=== PATIENT | female | born 1980 | race Caucasian/White ===

== ENCOUNTER 2019-10-07 12:37 | Inpatient (IN) | payer OTHER ==
[~2019-10-07] VITALS: Ht 167.6 cm; Wt 95.5 kg
[2019-10-07 13:06] LABS: BASOPHILS % (AUTO) 1.2 % (0.0-2.0); EOSINOPHILS % (AUTO) 3.6 % (1.0-6.0); HEMATOCRIT 29.2 % (36-46); HEMOGLOBIN 9.1 g/dL (12.0-16.0); LYMPHOCYTES # (AUTO) 2.4 K/uL (1.0-4.8); LYMPHOCYTES % (AUTO) 32.9 % (22.0-44.0); MEAN CORPUSCULAR HEMOGLOBIN 21.1 pg (26.0-34.0); MEAN CORPUSCULAR HGB CONC 31.1 G/dL (31.0-37.0); MEAN CORPUSCULAR VOLUME 68 fL (80-100); MONOCYTES # (AUTO) 0.6 K/uL (0.1-1.0); MONOCYTES % (AUTO) 7.5 % (2.0-9.0); NEUTROPHILS % (AUTO) 54.8 % (40.0-70.0); PLATELET COUNT (AUTO) 375 K/uL (150-450); RED BLOOD CELL COUNT(AUTO) 4.29 MIL/uL (4.00-5.20)
[2019-10-07] MEDS ORDERED: ACETAMINOPHEN 325 MG TABLET PO PRN (13:15)
[2019-10-07] MEDS ORDERED: ONDANSETRON HCL 4 MG/2 ML VIAL IVP PRN ×2 (13:15→16:30)
[2019-10-07] MEDS ORDERED: 0.9% SODIUM CHLORIDE 10 ML SYRINGE IVP PRN (13:15)
[2019-10-07 13:30] LABS: ANION GAP 7 mmol/L (8-16); CALCIUM, TOTAL 8.3 mg/dL (8.8-10.5); CARBON DIOXIDE 25 mmol/L (22-29); CHLORIDE 104 mmol/L (98-107); CREATININE 0.69 mg/dL (0.60-1.30); GLOMERULAR FILTR. RATE CALC > 60 mL/min (>60); GLUCOSE,RANDOM 102 mg/dL (70-110); POTASSIUM 4.1 mmol/L (3.5-5.1); SODIUM SERUM 136 mmol/L (136-145); UREA NITROGEN, BLOOD 13 mg/dL (7-18)
[2019-10-07 13:34] LABS: ALANINE AMINOTRANSFERASE 20 U/L (12-78); ALBUMIN 3.1 g/dL (3.4-5.0); ALKALINE PHOSPHATASE 70 U/L (46-116); ASPARTATE AMINOTRANSFERASE 13 U/L (15-37); BILIRUBIN,TOTAL 0.2 mg/dL (0.1-1.0); HCG,QUANTITATIVE < 1 mIU/mL (0-6); TOTAL PROTEIN, SERUM 7.5 g/dL (6.4-8.2)
[2019-10-07 15:00] VITALS: BP 146/93
[2019-10-07] MEDS ORDERED: BISACODYL 10 MG RECTAL RECTAL SUPPOSITORY PR PRN (16:30)
[2019-10-07] MEDS ORDERED: MAGNESIUM HYDROXIDE SUSPENSION 30 ML UDCUP PO PRN (16:30)
[2019-10-07] MEDS ORDERED: MORPHINE SULFATE 2 MG/ML SYRINGE IVP PRN (16:30)
[2019-10-07] MEDS ORDERED: ZOLPIDEM TARTRATE 5 MG TABLET PO PRN (16:30)
[2019-10-07] MEDS ORDERED: LORazepam 2 MG/ML VIAL IM PRN (16:30)
[2019-10-07 19:59] VITALS: BP 128/70
[2019-10-07] MEDS: DOCUSATE SODIUM 100 MG CAPSULE PO SCH (20:30)
[2019-10-07] MEDS: HYDROCODONE/ACETAMINOPHEN 5-325 MG TABLET PO PRN (20:30)
[2019-10-07] MEDS: HEPARIN SODIUM,PORCINE 5,000 UNITS/ML VIAL SQ SCH (23:53)
[2019-10-07] MEDS: ACETAMINOPHEN 325 MG TABLET PO PRN (23:53)
[2019-10-07 23:57] VITALS: BP 131/70
[2019-10-08 04:18] VITALS: BP 127/82
[2019-10-08 08:11] LABS: ANION GAP 6 mmol/L (8-16); CALCIUM, TOTAL 7.8 mg/dL (8.8-10.5); CARBON DIOXIDE 24 mmol/L (22-29); CHLORIDE 107 mmol/L (98-107); CREATININE 0.69 mg/dL (0.60-1.30); GLOMERULAR FILTR. RATE CALC > 60 mL/min (>60); GLUCOSE,RANDOM 103 mg/dL (70-110); POTASSIUM 3.7 mmol/L (3.5-5.1); SODIUM SERUM 137 mmol/L (136-145); UREA NITROGEN, BLOOD 11 mg/dL (7-18)
[2019-10-08] MEDS: HEPARIN SODIUM,PORCINE 5,000 UNITS/ML VIAL SQ SCH (08:19)
[2019-10-08] MEDS: DOCUSATE SODIUM 100 MG CAPSULE PO SCH ×2 (08:19→21:19)
[2019-10-08] MEDS: HYDROCODONE/ACETAMINOPHEN 5-325 MG TABLET PO PRN ×2 (08:20→14:57)
[2019-10-08] MEDS: PANTOPRAZOLE SODIUM 40 MG DR TABLET PO SCH (08:20)
[2019-10-08 08:40] VITALS: BP 109/64
[2019-10-08] MEDS ORDERED: SODIUM CHLORIDE 0.9% 1,000 ML ONE (10:38)
[2019-10-08] MEDS: FERROUS SULFATE 325 MG EC TABLET PO SCH ×2 (13:23→17:55)
[2019-10-08 15:51] VITALS: BP 132/79
[2019-10-08 18:31] LABS: APPEARANCE,URINE CLOUDY (CLEAR); BILIRUBIN,URINE NEGATIVE (NEGATIVE); GLUCOSE, URINE (UA) NEGATIVE (NEGATIVE); KETONES,URINE NEGATIVE (NEGATIVE); LEUKOCYTE ESTERASE ,URINE TRACE (NEGATIVE); NITRATE,URINE NEGATIVE (NEGATIVE); OCCULT BLOOD,URINE LARGE (NEGATIVE); PROTEIN,URINE NEGATIVE (NEGATIVE); UROBILINOGEN,URINE 0.2 mg/dL (<=1.0)
[2019-10-08 18:37] LABS: AMPHET/METH SCREEN,URINE POSITIVE (NEGATIVE); BARBITURATE SCREEN, URINE NEGATIVE (NEGATIVE); BENZODIAZEPINES SCREEN,URINE NEGATIVE (NEGATIVE); CANNABINOID SCREEN,URINE NEGATIVE (NEGATIVE); COCAINE SCREEN,URINE NEGATIVE (NEGATIVE); METHADONE SCREEN, URINE NEGATIVE (NEGATIVE); OPIATE SCREEN,URINE POSITIVE (NEGATIVE)
[2019-10-08 18:38] LABS: PHENCYCLIDINE SCREEN,URINE NEGATIVE (NEGATIVE)
[2019-10-08 18:58] LABS: BACTERIA,URINE Many /HPF (None Seen)
[2019-10-08 18:59] LABS: RBC,URINE >100 /HPF (0-2)
[2019-10-08 19:00] LABS: SQUAMOUS EPITHELIAL CELL,UR Moderate /LPF (None Seen)
[2019-10-08 20:10] VITALS: BP 124/77
[2019-10-09 04:00] VITALS: BP 119/70
[2019-10-09] MEDS: HYDROCODONE/ACETAMINOPHEN 5-325 MG TABLET PO PRN ×2 (05:34→18:13)
[2019-10-09 07:30] VITALS: BP 108/47
[2019-10-09] MEDS: PANTOPRAZOLE SODIUM 40 MG DR TABLET PO SCH (08:41)
[2019-10-09] MEDS: MULTIVITAMINS WITH MINERALS, THERAPEUTIC TABLET PO SCH (08:41)
[2019-10-09] MEDS: FERROUS SULFATE 325 MG EC TABLET PO SCH ×3 (08:41→18:13)
[2019-10-09] MEDS: DOCUSATE SODIUM 100 MG CAPSULE PO SCH ×2 (08:41→20:33)
[2019-10-09] MEDS ORDERED: ChlordiazePOXIDE HCL 10 MG CAPSULE PO PRN (11:00)
[2019-10-09] MEDS ORDERED: CefTRIAXone 1 GM/DEXTROSE 50 ML IV ONE (11:00)
[2019-10-09] MEDS ORDERED: SODIUM CHLORIDE 0.9% 250 ML IV ONE (11:53)
[2019-10-09 12:04] LABS: EOSINOPHILS % (AUTO) 3.4 % (1.0-6.0); HEMATOCRIT 29.9 % (36-46); HEMOGLOBIN 9.1 g/dL (12.0-16.0); LYMPHOCYTES # (AUTO) 2.6 K/uL (1.0-4.8); LYMPHOCYTES % (AUTO) 30.6 % (22.0-44.0); MEAN CORPUSCULAR HEMOGLOBIN 20.8 pg (26.0-34.0); MEAN CORPUSCULAR HGB CONC 30.5 G/dL (31.0-37.0); MEAN CORPUSCULAR VOLUME 68 fL (80-100); MONOCYTES # (AUTO) 0.6 K/uL (0.1-1.0); MONOCYTES % (AUTO) 7.8 % (2.0-9.0); NEUTROPHILS # (AUTO) 4.8 K/uL (1.8-7.7); NEUTROPHILS % (AUTO) 57.2 % (40.0-70.0); PLATELET COUNT (AUTO) 388 K/uL (150-450); RED BLOOD CELL COUNT(AUTO) 4.39 MIL/uL (4.00-5.20); RED CELL DISTRIBUTION WIDTH 21.4 % (11.5-14.5)
[2019-10-09 15:34] VITALS: BP 123/65
[2019-10-09 21:19] VITALS: BP 125/69
[2019-10-10 00:18] VITALS: BP 119/74
[2019-10-10 05:36] VITALS: BP 123/80
[2019-10-10] MEDS: DOCUSATE SODIUM 100 MG CAPSULE PO SCH ×2 (08:35→20:12)
[2019-10-10] MEDS: FERROUS SULFATE 325 MG EC TABLET PO SCH ×3 (08:35→17:37)
[2019-10-10] MEDS: MULTIVITAMINS WITH MINERALS, THERAPEUTIC TABLET PO SCH (08:35)
[2019-10-10] MEDS: PANTOPRAZOLE SODIUM 40 MG DR TABLET PO SCH (08:35)
[2019-10-10 13:24] VITALS: BP 119/78
[2019-10-10 16:23] VITALS: BP 115/59
[2019-10-10] MEDS: HYDROCODONE/ACETAMINOPHEN 5-325 MG TABLET PO PRN (20:40)
[2019-10-11 04:35] VITALS: BP 114/72
[2019-10-11 07:54] VITALS: BP 104/65
[2019-10-11] MEDS: PANTOPRAZOLE SODIUM 40 MG DR TABLET PO SCH (08:04)
[2019-10-11] MEDS: DOCUSATE SODIUM 100 MG CAPSULE PO SCH (08:04)
[2019-10-11] MEDS: MULTIVITAMINS WITH MINERALS, THERAPEUTIC TABLET PO SCH (08:04)
[2019-10-11] MEDS: FERROUS SULFATE 325 MG EC TABLET PO SCH ×2 (08:04→11:22)
[2019-10-11] MEDS: ACETAMINOPHEN 325 MG TABLET PO PRN (08:16)
[2019-10-11] MEDS ORDERED: FERR-89 PO (13:28)
[2019-10-11] MEDS ORDERED: MULT-1192 PO (13:28)
[2019-10-11] MEDS ORDERED: CIP250 PO (13:30)
== END 2019-10-11 15:56 | DRG 897 ==
LOC: EMS 12:47 → 6S 13:41
PROVIDERS: ADMIT Internal Medicine; ATTEND Internal Medicine
DX: F10.239 Alcohol dependence with withdrawal, unspecified (principal); N39.0 Urinary tract infection, site not specified; D50.9 Iron deficiency anemia, unspecified; F15.90 Other stimulant use, unspecified, uncomplicated; N92.0 Excessive and frequent menstruation with regular cycle; F17.210 Nicotine dependence, cigarettes, uncomplicated
CPT/HCPCS: 83735; 87086; G0480; J0696; J1644; J3411; J3475; J3490; J7030; J7050